=== PATIENT | female | born 1990 | race African-American/Black ===

== ENCOUNTER 2021-07-21 14:51 | Emergency (ER) | payer MEDICAID ==
[~2021-07-21] VITALS: Ht 165.1 cm; Wt 87.0 kg
[2021-07-21 15:09] VITALS: BP 134/80
[2021-07-21] MEDS ORDERED: SULF1TAB48 PO (16:24)
[2021-07-21] MEDS ORDERED: IBUP-2029 PO (16:24)
== END 2021-07-21 16:49 | disposition home or self-care (01) ==
LOC: ER 14:51
DX: S50.361A Insect bite (nonvenomous) of right elbow, initial encounter (principal); Z88.0 Allergy status to penicillin; Z90.49 Acquired absence of other specified parts of digestive tract; W57.XXXA Bitten or stung by nonvenomous insect and other nonvenomous arthropods, initial encounter; Y93.89 Activity, other specified; Y92.89 Other specified places as the place of occurrence of the external cause; Y99.8 Other external cause status
CPT/HCPCS: 99283